=== PATIENT | female | born 1985 | race Hispanic/Latino ===

== ENCOUNTER 2020-02-16 17:09 | Emergency (ER) | payer SELFPAY ==
[~2020-02-16 17:09] MED LIST: Iopamidol-370 76% 500 ML 1 ML ONE
[2020-02-16 18:32] LABS: #Basophils 0.1 thou/uL (0.0-0.2); #Eosinphils 0.3 thou/uL (0.0-0.7); #Lymphocytes 2.6 thou/uL (1.20-3.40); #Monocytes 0.3 thou/uL (0.11-0.59); %Eosinophils 4.8 % (0.0-10.0); %Monocytes 5.4 % (0.0-10.0); %Neutrophils 47.8 % (42.0-75.0); Hemoglobin 12.7 g/dL (12.0-16.0); Mean Corpuscular HGB CONC 34.4 g/dL (32.0-36.0); Mean Corpuscular Hemoglobin 32.5 pg (27.0-31.0); Mean Corpuscular Volume 94.5 fL (78.0-98.0); Mean Platelet Volume 7.2 fL (7.4-10.4); Platelet Count 294 thou/uL (130-400); RBC Distribution Width 11.4 % (11.5-14.5); Red Blood Cell (RBC) Count 3.92 mill/uL (4.20-5.40); White Blood Cell (WBC) Count 6.2 thou/uL (4.8-10.8)
[2020-02-16 18:56] LABS: ALT (SGPT) 37 U/L (8-55); AST (SGOT) 23 U/L (5-34); Albumin 4.4 g/dL (3.5-5.0); Alkaline Phosphatase 75 U/L (40-110); Anion Gap 12 mmol/L (10-20); BUN (Urea Nitrogen) 9 mg/dL (7.0-18.7); Bilirubin, Total 0.2 mg/dL (0.2-1.2); Calc. Creatinine Clearance 0 mL/min (70-130); Calcium 9.2 mg/dL (7.8-10.44); Carbon Dioxide 25 mmol/L (22-29); Chloride 109 mmol/L (98-107); Estimated GFR-MDRD 78; Globulin 3.3 g/dL (2.4-3.5); Glucose 87 mg/dL (70-105); Potassium 4.2 mmol/L (3.5-5.1); Protein, Total 7.7 g/dL (6.0-8.3); Sodium 142 mmol/L (136-145)
[2020-02-16 20:16] LABS: Bilirubin Negative (Negative); Blood, Urine Large (Negative); Glucose, Urine (Dipstick) Negative (Negative); Ketone, Urine Negative (Negative); Leukocyte Negative (Negative); Nitrite Negative (Negative); Protein, Urine (Dipstick) Negative (Neg-Trace); Specific Gravity, Urine 1.015 (1.005-1.030); Urobilinogen 0.2 mg/dL (Less than 2)
[2020-02-16 20:17] LABS: Clarity Clear (Clear)
[2020-02-16 20:19] LABS: Pregnancy Test - Urine (BHCG) Negative (Negative); Pregu Control Background? CLEAR/WHITE (CLR/WHITE); Pregu Control Bar Appear? YES (CONTROL BAR); Specific Gravity 1.015 (1.002-1.036)
[2020-02-16 20:26] LABS: RBC/HPF 0-3 HPF (0-3); Squamous Epithelial 0-3 HPF (0-3); WBC/HPF 0-3 HPF (0-3)
[2020-02-16 20:27] LABS: Bacteria/HPF Rare-Few HPF (None Seen)
[2020-02-16] MEDS ORDERED: Ketorolac Tromethamine 30 MG/ML VIAL ONE (20:54)
[2020-02-16] MEDS ORDERED: Morphine 2 MG/ML VIAL ONE (20:54)
--- NOTE | 2020-02-16 22:15 | CT ---
CT ABDOMEN AND PELVIS WITH IV CONTRAST 02/16/2020 CLINICAL INFORMATION: Lower abdominal pain. COMPARISON: None. Technique: Multiple contiguous axial CT images are obtained through the abdomen and pelvis with IV contrast. Cor onal reformatted images are provided. FINDINGS: Lower Chest: Dependent atelectasis. Vessels: Abdominal aorta is normal in caliber. Abdomen: Portal vein:Patent Gallbladder: Within normal limits for CT imaging. Liver: within normal limits. Spleen: within normal limits. Pancreas: within normal limits. Adrenals: within normal limits. Kidneys: A 2.2 cm fluid attenuation cystic lesion is seen in the superior pole left kidney compatible with cyst. Kidneys otherwise have a normal CT appearance bilaterally. There is no hydronephrosis present. Bowel: Normal caliber. Appendix: The appendix is visualized and normal in caliber. Peritoneum: No ascites or free air; no fluid collection. Mesentery and Retroperitoneum: No enlarged mesenteric or retroperitoneal lymph nodes. Abdominal Wall: There is an area of mild increased density and irregularity in the inferior aspect of the right rectus abdominis muscle measuring 4.3 cm craniocaudal x2.7 cm transverse x1.8 cm AP. There is a small 1.5 cm hypodense collection seen in the region of the laboratory changes. Findings a re suggestive of infectious and/or inflammatory process in this region of uncertain etiology. Pelvis: Reproductive Organs: Heterogeneity in the region of the cervix which could be related to nabothian cy sts and phase of imaging. However follow-up pelvic ultrasound would be helpful for further evaluation. Bladder: within normal limits. Bones: No suspicious lytic or sclerotic osseous lesions. IMPRESSION: 1. Inflammatory/infectious process in the region of the right lower rectus abdominis muscle with grea test dimension of 2.7 cm. Follow-up evaluation is recommended to ensure resolution of presumed infectious/inflammatory process. 2. Heterogeneity in the region of the cervix probably related to nabothian cysts and heterogeneity du e to phase of imaging. However follow-up pelvic ultrasound is suggested. 3. Left renal cyst.
== END 2020-02-16 22:45 | disposition home or self-care (01) ==
LOC: ERS 17:09
DX: R10.31 Right lower quadrant pain (principal)
CPT/HCPCS: 36415; 74177; 80053; 81003; 81015; 81025; 83690; 85025; 96374; J1885; J2270; Q9967